=== PATIENT | female | born 1950 | race Two or more races ===

== ENCOUNTER → 2023-01-20 09:05 | Outpatient (BNVA) | payer MEDICARE, SELFPAY | PROVIDERS: PCP Internal Medicine; Visit Provider Internal Medicine Rheumatology | DX: M65.9 Synovitis and tenosynovitis, unspecified (principal); M17.0 Bilateral primary osteoarthritis of knee; M79.641 Pain in right hand; R76.8 Other specified abnormal immunological findings in serum | CPT/HCPCS: 20610; 99212 ==

== ENCOUNTER 2025-08-08 09:07 | Outpatient (AMB) | payer MEDICARE, SELFPAY ==
--- NOTE | 2025-08-08 09:18 | A.OFFVIS_ITS ---
Intake Visit Reasons: ENP: Tremor Allergies acetaminophen (From NyQuil) Allergy (Intermediate, Verified 01/20/23 09:21) Hives dextromethorphan (From NyQuil) Allergy (Intermediate, Verified 01/20/23 09:21) Hives doxylamine (From NyQuil) Allergy (Intermediate, Verified 01/20/23 09:21) Hives latex Allergy (Intermediate, Verified 01/20/23 09:21) Swelling metformin Allergy (Intermediate, Verified 01/20/23 09:21) Palpitations pseudoephedrine (From NyQuil) Allergy (Intermediate, Verified 01/20/23 09:21) Hives plastibase Allergy (Intermediate, Uncoded 01/20/23 09:21) swelling Medication List - Last Reconciled 08/08/25 by Nita Cortez MD capsaicin 0.025% 1 appl topical BID carvedilol 12.5 mg PO BID cholecalciferol (vitamin D3) 25 mcg PO DAILY diclofenac sodium 1% (Arthritis Pain (diclofenac)) 2 grams topical QID dulaglutide (Trulicity) mg subcut epinephrine (EpiPen) 0.3 mg IM Q4H PRN exemestane 25 mg PO DAILY fluticasone propionate 110 mcg/actuation inhalation magnesium 400 mg PO BID trazodone 25 mg PO BEDTIME PRN zonisamide 50 mg PO BID HPI Comments Details: This is a 75-year-old right-handed woman who is here for evaluation of tremors in her hands that started approximately 20 years ago. She has a history of hypertension some chest pains with a recently negative cardiac catheterization, bronchial asthma, diabetes mellitus, and depression, right breast cancer treated with Laser and RT. For the last 3 or 4 years she has been treated for her tremor with zonisamide 50 mg b.i.d. which seems to have helped. She still has some tremor which affects her ability to cook but otherwise she is functioning well. Her father also had tremors. She has no other mobility problems. She has trouble falling asleep and has recently started trazodone 25 mg at bedtime [facility] Medical History (Updated 08/08/25 @ 09:35 by Nita Cortez MD) Anxiety SVT (supraventricular tachycardia) Tremor Paroxysmal supraventricular tachycardia Fibromyalgia CTS (carpal tunnel syndrome) Hypertension Osteoarthritis Severe obesity Thyroid nodule Diabetes Essential tremor Osteopenia Infiltrating ductal carcinoma LVH (left ventricular hypertrophy) Neuropathy Palpitations Pericardial effusion Lung nodule Surgical History Hx of colonoscopy H/O sigmoidoscopy Cataract Hx of cardiac cath H/O lumpectomy Family History Father Cataract Glaucoma Social History (Updated 01/20/23 @ 09:24 by MARICRUZ Butterfield) Household Members: Spouse Alcohol intake: current Patient Tobacco Use Status: Never used Tobacco Current occupational status: unemployed and retired Review of Systems Const Details: Sleep:? Difficulty getting to sleepadmits.? Difficulty maintaining sleepadmits.? Urge to move legsdenies.? Teeth grindingdenies.? Shouting or Kicking during sleep denies.? Abnormal behavior during sleepdenies.? Excessive sleepdenies.? Snoring denies.? Daytime sleepinessdenies. ???General/Constitutional:? Change in appetitedenies.? Chillsdenies.? Fatiguedenies.? Feverdenies.? Weight gainadmits.? Weight lossdenies. ???Ophthalmologic:? Blurred visiondenies.? Diminished visual acuitydenies. ???ENT:? Stuffinessdenies.? Decreased hearingdenies.? Dry mouthdenies.? Ear paindenies.? Nosebleeddenies.? Ringing in the earsdenies.? Sinus paindenies.? Sore throat denies.? Swollen glandsdenies. ???Endocrine:? Cold intolerancedenies.? Excessive thirstdenies.? Frequent urinationdenies.? Heat intolerancedenies. ???Respiratory:? Shortness of breathdenies.? Chest paindenies.? Coughdenies. ???Breast:? Breast lumpdenies.? Nipple dischargedenies. ???Cardiovascular:? Chest pain at restdenies.? Chest pain with exertiondenies.? Claudicationdenies .? Dizzinessdenies.? Fluid accumulation in the legsdenies.? Irregular heartbeat denies.? Palpitationsdenies. ???Gastrointestinal:? Abdominal paindenies.? Constipationdenies.? Diarrheadenies.? Difficulty swallowingdenies.? Heartburndenies.? Nauseadenies.? Rectal bleedingdenies. ???Hematology:? Easy bruisingdenies.? Prolonged bleedingdenies. ???Genitourinary:? Frequent urinationdenies.? Urgencydenies.? Incontinencedenies.? Erectile Dysfunctiondenies. ???Musculoskeletal:? Neck paindenies.? Back paindenies.? Muscle achesdenies.? Painful jointsdenies.? Sciaticadenies.? Weaknessdenies. ???Podiatric:? Difficulty walkingdenies.? Foot numbnessdenies. ???Neurologic:? Difficulty swallowingdenies.? Balance difficultydenies.? Coordinationnormal.? Difficulty speakingdenies.? Dizzinessdenies.? Faintingdenies.? Gait abnormality denies.? Headacheadmits.? Loss of strengthdenies.? Loss of use of extremity denies.? Low back paindenies.? Memory lossdenies.? Seizuresdenies.? Ticsdenies.? Tingling/Numbnessdenies.? Transient loss of visiondenies.? Tremordenies. ???Psychiatric:? Anxietyadmits.? Auditory/visual hallucinationsdenies.? Delusionsdenies.? Depressed mood Yes.? Stressorsadmits.? Substance abusedenies.? Suicidal thoughts denies. Physical Exam Neuro Other: General Examination: GENERAL APPEARANCE:??normal,?in no acute distress?,?normal,?in no acute distress.?HEAD:??normocephalic,?atraumatic?,?normocephalic,?atraumatic.?EYES:??s clera non-icteric,?conjunctiva clear?,?sclera non-icteric,?conjunctiva clear.?EARS:??auditory canal clear,?tympanic membrane intact, clear?,?auditory canal clear,?tympanic membrane intact, clear.?NOSE:??no lesions?,?no lesions.?ORAL CAVITY:??gums normal,?mucosa moist,?no lesions?,?gums normal,?mucosa moist,?no lesions.?THROAT:??clear?,?clear.?NECK/THYROID:??no cervical lymphadenopathy,?thyroid normal,?neck supple, full range of motion,?no carotid bruit?,?no cervical lymphadenopathy,?thyroid normal,?neck supple, full range of motion,?no carotid bruit.?SKIN:??no rashes,?no significant birthmarks?,?no rashes,?no significant birthmarks.?HEART:??S1, S2 normal,?no murmurs?,?S1, S2 normal,?no murmurs.?LUNGS:??clear anteriorly and posteriorly?,?clear anteriorly and posteriorly.?CHEST:??no gross rib deformity,?clear to auscultation?,?no gross rib deformity,?clear to auscultation.?BACK:??normal exam of spine?,?normal exam of spine.?EXTREMITIES:??no edema?,?no edema.?PERIPHERAL PULSES:??normal?,?normal.?PSYCH:??alert, oriented,?cognitive function intact,?cooperative with exam?,?alert, oriented,?cognitive function intact,?cooperative with exam.? Neurological: Abnormal neurological findings:??Coarse tremor at 8 hertz frequency intermittently of the outstretched hands both with the finger spread and in the pincer position. At times worse on the left than the right. No rigidity bradykinesia or cogwheeling. No head or truncal tremor.?Mental Status:??alert and oriented X 3,?Normal attention, orientation, memory and affect.?Cranial Nerves:??Pupils are equal, round and reactive to light. Fundoscopy shows normal disc bilaterally. External occular muscles are intact. Visual zamorano are full, no ptosis. Face is symmetrical, no facial weakness or droop. Facial sensations are normal. Tongue protrudes in midline. Palate elevates symmetrically. Shoulder shrugging is normal..?Motor Examination:??Normal muscle tone, bulk and strength,?No atrophy or fasciculations,?No drift of the extended upper extremities,?Deep tendon reflexes are 2+?,?Plantars are flexor?.?Motor Strength:?Proximal Muscles (out of 5):5Distal Muscles (out of 5):5Neck Flexors (out of 5):5Neck Extensors (out of 5):5Deltoid (out of 5):5Biceps (out of 5):5 Triceps (out of 5):5Serratus Anterior (out of 5):5Wrist Extensors (out of 5):5 APB (out of 5):5Finger Spread (out of 5):5Ileopsoas (out of 5):5Quadriceps (out of 5):5Hamstrings (out of 5):5Tibialis Anterior (out of 5):5Peronei (out of 5):5 EDB (out of 5):5Gastrocnemius (out of 5):5Straight Leg Raising:??90 degrees.?Sensory Exam:??Normal light touch, temperature, pinprick, vibration and joint-position sensations?,?Rhomberg sign is absent.?Coordination:??no ataxia,?no titubation,?[id number], [id number] test and rapid alternating movements were normal.?Gait Exam:??Within normal limits.?Cerebellar Signs:??[id number] and [id number]-vrpd is normal,?no dysdiadochokinesia?.?Extrapyramidal System:??tremor as above, no rigidity with normal facial expressions,?No bradykinesia, no bradyphrenia. Normal arm swing and posture. No propulsion or retropulsion.?Speech:??Normal,?no dysphasia or dysarthria..? Mini Mental Status Exam: Level of Consciousness:??Alert.?Orientation:??Knows correct year, month, date, day and season,?Knows correct city, county and state. Knows correct location and floor.?Registration:??Able to register 3 objects.?Attention:??Serial 7's performed accurately.?Recall:??Able to recall 3 out of 3 objects.?Language:??Normal spontaneous speech, fluency, repetition,naming, comprehension, reading and writing.?Total Score:??30/30.? Assessment & Plan Assessment & Plan (1) Benign familial tremor: Code(s): G25.0 - Essential tremor Category: Medical Plan continue Zinisamide. Add Primidone 25 mg qd for 2 weeks then 50 mg hs Medications: New primidone 50 mg PO BEDTIME 30 tabs 3RF 30 days MDD 50mg Refilled zonisamide 50 mg PO BID 180 caps 3RF 90 days Coding Level of Care Code New Pt Level 4 (66173) Diagnoses Benign familial tremor G25.0
--- OUTSIDE RECORDS SUMMARY | 2025-08-08 10:33 | XMS_ITS | Clinical Summary ---
Author Organization [facility] Address [address] [place] [address] Phone Care Team Providers Care Lead Mobile Developer Name Role Phone Joselo Mcdonnell MD Primary Care Provider [phone] Allergies Active Allergy Reactions Criticality Noted Date Comments Acetaminophen 05/31/2025 Lvhcdtjlf-Kwf-Sg-Acetamino phen 05/31/2025 Zgewghohgm-Zg-Yhvhjomffnqj n 01/09/2020 Latex 01/09/2020 Lemon Flavor 04/02/2022 Metformin Palpitations 04/17/2022 Other 10/03/2020 Tide laundry detergents and Zucchini (tried zucchini again once and ok) Plastibase Swelling High 09/27/2021 Plastic utensils , water bottles Swelling lips, throat tightness [place] 04/02/2022 Valacyclovir Itching 04/21/2024 Medications albuterol sulfate 90 mcg/actuation aerosol powdr breath activated Inhale into the lungs. Active capsaicin cream (CAPZASIN-HP) 0.1 % cream cream Apply topically 3 (three) times a day. Active exemestane (AROMASIN) 25 mg tablet TAKE 1 TABLET BY MOUTH DAILY 3 Active zonisamide (ZONEGRAN) 50 mg capsule Take 50 mg by mouth daily. Active LANCETS MISC by Does not apply route. Active glucose blood (Ciro Blood Glucose Test Strip) test strip 1 each by Other route as needed for other. Use as instructed Active clotrimazole-bet amethasone (LOTRISONE) 1-0.05 % cream Apply topically. Active cholecalciferol (VITAMIN D-3) 1,250 mcg (50,000 unit) capsule Take by mouth 1 (one) time each day. Active zinc sulfate (ZINCATE) 220 mg (50 mg elemental zinc) capsule Take 1 capsule (220 mg total) by mouth. Active EPINEPHrine (EPIPEN) 0.3 mg/0.3 mL injection Inject 0.3 mL (0.3 mg total) into the thigh if needed. 1 Active diclofenac (VOLTAREN) 1 % topical gel Apply 1 applicator topically 2 (two) times a day. 4 Active escitalopram (LEXAPRO) 10 mg tabletIndication s:Depression, unspecified depression type TAKE 1 TABLET(10 MG) BY MOUTH 1 TIME EACH DAY 30 tablet 5 5 Active tirzepatide (MOUNJARO) 2.5 mg/0.5 mL injectionIndicat ions:Type 2 diabetes mellitus with other specified complication, with long-term current use of insulin ([facility] V24, [facility] V28),Morbid obesity ([facility] V24, [facility] V28) Inject 0.5 mL (2.5 mg total) under the skin every 7 (seven) days. 2 mL 3 5 Active gabapentin (NEURONTIN) 600 mg tablet TAKE 1 TABLET(600 MG) BY MOUTH TWICE DAILY 180 tablet 1 5 Active carvediloL (COREG) 12.5 mg tablet Take 1 tablet (12.5 mg total) by mouth 2 (two) times a day with meals. 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 Adjuvant radiation, intolerant of anastrozole, now on aromasin through oncology for at minimum 5 years Osteopenia 12/08/2019 Overview (02/17/2025): 0.7 T score spine -1.1 hip 3.2 % 10 year major osteoporotic and 0.3% hip fracture risk Essential tremor 09/30/2019 Overview (02/17/2025): Neurologist ([facility]) - on zonegran Type 2 diabetes mellitus wit h cataract ([facility] V24, [facility] V28) 11/26/2016 Thyroid nodule 07/10/2014 Overview (02/17/2025): FNA Benign; 08/29 Severe obesity (BMI >= 40) ([facility] V24, [facility] V28) 11/10/2013 Osteoarthritis of foot joint 02/25/2010 Overview (02/17/2025): Hallux valgus, hammertoes, R>L 1st MTP DJD Osteoarthritis of knee 02/25/2010 Overview (02/17/2025): Moderate, bilateral Hypertension 09/15/2008 Diabetes mellitus type 2 wit h neurological manifestations ([facility] V24, [facility] V28) 08/18/2008 Overview (02/17/2025): 02/2008 . Carpal tunnel syndrome 04/02/2006 Overview (02/17/2025): Pos NCT at [facility] in 2003: bilateral, severe CTS Had right CTR 2005 Fibromyalgia 04/02/2006 Overview (02/17/2025): RF negative; CCP Ab slightly positive (02/23) IMO update Paroxysmal supraventricular tachycardia ([facility]/HCC V24) 04/02/2006 Overview (02/17/2025): Holter monitor (11/05/17) : Normal sinus rhythm, 1 PACs, no PVCs Last Assessment & Plan: Presumed to paroxysmal SVT. ILR has not identified any significant arrhythmias. I reassured her that we will be aware if she has any clinically significant arrhythmias. In the interim I will continue with her current medical therapy including beta-winston. Blood pressure elevated today although last 3 measurements have been well-controlled. Will plan for routine clinical follow-up in around 1 year. Encounters Date Type Department Care Team Description 07/24/2025 Telephone [facility] Hematology Oncology [address] [place] [address] Stefany Gordon DC 06/20/2025 7:20 PM EDT Ancillary Procedure [facility] Cardiology [facility] [address] [place] [address] 06/13/2025 Telephone [facility] [address] [place] [address] Latasha Pond DC 05/31/2025 1:40 PM EDT Office Visit [facility] Cardiology [facility] [address] [place] [address] Rosi López NP SVT (supraventricular tachycardia) ([facility] V24) (Primary Dx) 05/15/2025 7:40 AM EDT Ancillary Procedure [facility] [address] [place] [address] 05/12/2025 11:15 AM EDT Office Visit Internal [facility] - [address] [place] [address] Regulo Oconnell, LELIA Type 2 diabetes mellitus with other specified complication, with long-term current use of insulin ([facility] V24, [facility] V28) (Primary Dx); Morbid obesity ([facility] V24, [facility] V28); Primary insomnia; Tremor from Last 3 Months Surgical History Surgery Date Site/Laterality Comments MAMMOGRAM KYLEE 12/24 PROCEDURE: MAMMOGRAM, SCREENING, BOTH BREASTS; COMMENT: neg OTHER SURGICAL HISTORY 12/24 PROCEDURE: PAP SMEAR, THIN PREP CYTOLOGY EXAM ONLY; COMMENT: [place]; neg CARDIAC CATHETERIZATION 05/17 PROCEDURE: HISTORICAL CARDIAC CATH; COMMENT: neg for CAD COLONOSCOPY 01/02/09 PROCEDURE: HISTORICAL COLONOSCOPY; COMMENT: normal; repeat in ten years FLEXIBLE SIGMOIDOSCOPY 06/17 PROCEDURE: NJ SIGMOIDOSCOPY FLX DX W/COLLJ SPEC BR/WA IF PFRMD; COMMENT: [place]; neg CATARACT EXTRACTION PROCEDURE: HISTORICAL CATARACT REMOVAL BREAST BIOPSY PROCEDURE: BX BREAST; PERC NEEDLE CORE W/IMAG GUID BREAST SURGERY PROCEDURE: NJ UNLISTED PROCEDURE BREAST; COMMENT: lumpectomy c radiation treatment BREAST LUMPECTOMY ABLATION DONE ON 05/01/2025 AT [facility] INDICATIONS:SVT Medical History Medical History Date Comments Paroxysmal supraventricular tachycardia ([facility] V24) 04/02/2006 DX:Paroxysmal supraventricul ar tachycardia (HCC) Carpal tunnel syndrome 04/02/2006 DX:Carpal tunnel syndrome; COMMENT: right CTR helped; left still symptomatic Myalgia and myositis, unspecified 04/02/2006 DX:Myalgia and myositis, unspecified Historical Medical DX 02/29/2008 DX:Glucose intolerance Obesity 02/29/2008 DX:Obesity Elevated blood pressure read ing without diagnosis of hypertension 08/18/2008 DX:Elevated blood pr essure reading without diagnosis of hypertension Type II or unspecified type diabetes mellitus without mention of complication, not stated as uncontrolled 08/18/2008 DX:Type II or unspecified ty pe diabetes mellitus without mention of complication, not stated as uncontrolled Unspecified essential hypertension 09/15/2008 DX:Unspecified essential hypertension Osteoarthritis of knee 02/25/2010 DX:Osteoa rthritis of knee Osteoarthritis of foot joint 02/25/2010 DX: Osteoarthritis of foot joint Thyroid nodule 07/10/2014 DX:Thyroid nodul e Thyroid nodule 07/10/2014 DX:Thyroid nodul e Diabetes mellitus type 2 wit h neurological manifestations ([facility] V24, [facility] V28) 08/18/2008 DX:Diabetes mellitus type 2 with neurological manifestations (HCC); COMMENT: 02/2008 Type 2 diabetes mellitus wit h cataract ([facility] V24, [facility] V28) 11/26/2016 DX:Type 2 diabetes mellitus with cataract (HCC) Osteopenia 12/08/2019 DX:Osteopenia 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 12/23/2019 DX: 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 Positive anti-CCP test 02/14/2020 DX:Positi ve anti-CCP test; COMMENT: Titer of 32(low) - No synovitis Stage 1 infiltrating ductal carcinoma of right female breast ([facility] V24, [facility] V28) 12/20/2019 DX:Stage 1 infiltrating duct al carcinoma of right female breast (HCC) 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 Cataracts Father Diabetes Father bkn amputations bilaterally Glaucoma Father Testicular cancer Father Brain cancer Mother Breast cancer Other m aunts x 3 Rheum arthritis Son 1 Blindness Neg Hx Macular degeneration Neg Hx Strabismus Neg Hx Relation Name Status Comments Brother x4 3 Daughter x2 both Father Mother Other m aunts x 3 Alive Son 1 Alive Social History Tobacco Use Types Packs/Day Years Used Date Smoking Tobacco: Never Smokeless Tobacco: Never Tobacco Cessation:Counseling Given: Not Answered Alcohol Use Standard Drinks/Week Comments Yes 0 (1 standard drink = 0.6 oz pur e alcohol) Housing Instability Answer Date Recorde d Are you worried that in the next 2 months you may not have stable housing? No 11/09/2024 Food Access & Nutrition Answer Date Rec orded Do you have access to a vari ety of food including fruits and vegetables? Yes 11/09/2024 Access to Healthcare Answer Date Record ed Within the last 3 months, ivelisse huerta many times did you visit the emergency department for your medical care? 1 11/09/2024 Health Literacy Answer Date Recorded How often do you need to hav e someone help you when you read instructions, pamphlets, or other written material from your doctor or pharmacy? Never 11/09/2024 Caregiver: How often do you need to have someone help you when you read instructions, pamphlets, or other written material from your doctor or pharmacy? Not on file 11/09/2024 Financial Risk Answer Date Recorded How hard is it for you to pa y for the very basics like food, housing, medical care, and air conditioning / heating? Somewhat hard 11/09/2024 Transportation Answer Date Recorded Has the lack of transportati on kept you from meetings, work, or from getting things needed for daily living? No Has the lack of transportati on kept you from medical appointments or from getting medications? No 11/09/2024 Social Isolation Answer Date Recorded How often do you feel lonely or isolated from th ose around you? Rarely 11/09/2024 Food Risk Answer Date Recorded Within the past 12 months we worried whether our food would run out before we got money to buy more. Never true 11/09/2024 Within the past 12 months th e food we bought just didn't last and we didn't have money to get more. Never true 11/09/2024 Dependent Care Answer Date Recorded Do you need help finding or paying for care for your loved ones. For example, child psychiatrist or elderly care for an older adult? No 11/09/2024 Education Answer Date Recorded Do you think completing more education or training, like finishing a GED, going to college, or learning a trade, would be helpful for you? N/A 11/09/2024 Employment and Income Answer Date Recor ded During the last four weeks, have you been actively looking for work? No 11/09/2024 Living Situation Answer Date Recorded What is your living situation? 1 01/10/2024 Comments No Sex and Gender Information Value Date Recorded Sex Assigned at Not on file Legal Sex Female 8:31 PM EST Gender Identity Not on file Sexual Orientation Not on file Obstetrics History Para Term AB IAB SAB Ectopic Multiple Livin g Live Births 3 3 3 Date Outcome GA Total Labor Labor/2nd/3rd Weight Sex Type Anes PTL Cate A1 A5 Name Clin Term Term Term Last Filed Vital Signs Vital Sign Reading Time Taken Comments Blood Pressure 110/70 05/31/2025 1:46 PM EDT Pulse 64 05/31/2025 1:46 PM EDT Temperature 36.4 C (97.5 F) 11/29/2024 11:22 AM EST Respiratory Rate 16 04/13/2025 3:01 PM EDT Oxygen Saturation 96% 05/31/2025 1:46 PM EDT Inhaled Oxygen Concentration - - Weight 121 kg (266 lb) 05/31/2025 1:46 PM EDT Height 154.9 cm (5' 1 ) 05/31/2025 1:46 PM EDT Body Mass Index 50.26 05/31/2025 1:46 PM EDT Plan of Treatment Upcoming Encounters Date Type Department Care Team (Late st Contact Info) Description 09/01/2025 1:00 PM EDT Appointment [facility] Bone Density [address] [place] [address] 09/14/2025 11:00 AM EDT Office Visit Internal Medicine - [address] [phone] Regulo Oconnell NP [address] [place] [phone] 10/18/2025 11:00 AM EST Office Visit [facility] Hematology Oncology [address] [place] [address] Chan Mayo MD [address] [place] [address] 02/16/2026 2:10 PM EDT Appointment Radiology Department - [address] [phone] Health Maintenance Due Date Last Done Comments Diabetes: Annual Foot Exam 1961 Diabetes: Annual Retina Eye Exam 1961 RSV Immunization Adult Patients (1 - Risk 60-74 years 1-dose series) 2011 Cholesterol Screening (Lipid Panel) 10/23/2022 Colorectal Cancer Screening: Colonoscopy 10/23/2022 Diabetes: Annual Urine Albumin-Creatinine Ratio (uACR) 10/23/2022 Hepatitis C Screening 10/23/2022 Medicare Annual Wellness Visit 10/23/2022 Diabetes: Blood Sugar Control Test (HGBA1C) 07/12/2025 01/12/2025, 09/09/2024 COVID-19 Vaccine ( season) 2025 10/02/2022, 11/24/2021, 10/25/2021 Influenza Vaccine (#1) 2025 Social Influencers of Health Screening 11/09/2025 11/09/2024 Diabetes: Annual GFR (Glomerular Filtration Rate) 2026 2025, 01/12/2025, 11/10/2024, Additional history exists Hypertension/CHF/CAD Annual BMP Blood Test 2026 2025, 01/12/2025, 11/10/2024, Additional history exists Falls Risk Assessment 05/12/2026 05/12/2025, 024 Breast Cancer Screening 02/15/2027 02/16/20, 02/04/2024, 01/29/2023, Additional history exists DTaP,Tdap,and Td Vaccines (4 - Td or Tdap) 04/02/2032 04/02/2022, 12/19/2011, 12/03/2001 Osteoporosis Screening (Bone Density Screening) 08/28/2033 08/28/2023, 08/09/2021, 12/08/2019 Pneumococcal Vaccine: 50+ Years Completed 04/02/2022, 03/22/2019, 09/28/2015 Zoster Vaccines Completed 05/21/2023, 08/05/2022 Depression Screening Completed 05/05/2025 HIB Vaccines Aged Out No longer eligi ble based on patient's age to complete this topic HPV Vaccines Aged Out No longer eligi ble based on patient's age to complete this topic Hepatitis A Vaccines Aged Out No long er eligible based on patient's age to complete this topic Hepatitis B Vaccines Aged Out No long er eligible based on patient's age to complete this topic IPV Vaccines Aged Out No longer eligi ble based on patient's age to complete this topic MMR Vaccines Aged Out No longer eligi ble based on patient's age to complete this topic Meningococcal ACWY Vaccine Aged Out N o longer eligible based on patient's age to complete this topic Meningococcal B Vaccine Aged Out No l onger eligible based on patient's age to complete this topic RSV Immunization Patients Under 20 months Aged Out No longer eligible based on patient's age to complete this topic Varicella Vaccines Aged Out No longer eligible based on patient's age to complete this topic Medical Devices Implanted Type Area Him Director Device Identifier Shelf Expiration Date Model / Serial / Lot Bsci-Crm [id number] Implanted:02/15 (Quantity not on file) Cardiac Loop Recorder [employer] CARD RHYTHM MGMT [id number] / [id number] / Procedures Procedure Name Priority Date/Time Associated Diagnosis Comments CARDIAC DEVICE CHECK- REMOTE- MURJ Routine 06/20/2025 7:15 PM EDT ECG 12-LEAD Routine 05/31/2025 2:16 PM EDT SVT (supraventricular tachycardia) ([facility] V24) CARDIAC DEVICE CHECK- REMOTE- MURJ Routine 05/15/2025 7:38 AM EDT BASIC METABOLIC PANEL Routine 2025 3:47 PM EDT SVT (supraventricular tachycardia) ([facility]CC V24) MG MAMMO DIGITAL SCREENING W USAMA BILAT Routine 02/15/2025 2:23 PM EDT Encounter for screening mammogram for breast cancer HEMOGLOBIN A1C Routine 01/12/2025 12:56 PM EST Type 2 diabetes mellitus with other specified complication, 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 Date Time Interrogation Session [id number] CV DEVICE CHECK Type Interrogation Session Remote Scheduled CV DEVICE CHECK Implantable Pulse Generator Him Director BSX CV DEVICE CHECK Implantable Pulse Generator Type ILR CV DEVICE CHECK Implantable Pulse Generator Model M312 CV DEVICE CHECK Implantable Pulse Generator Serial Number [id number] CV DEVICE CHECK Implantable Pulse Generator Implant Date 20240311 CV DEVICE CHECK Battery Status Beginning of Service CV DEVICE CHECK Atrial Tachy Statistic AT/AF [place] Percent 0.00 CV DEVICE CHECK Date of Service 2025-06-20 CV DEVICE CHECK Anatomical Region Laterality Modality Device Interroga tion 06/05/2025 2:34 AM EDT Impressions 06/20/2025 3:47 PM EDT Normal Remote: No Events * This is a normal remote diagnostic device check * Alerts or events: None * Battery data was reviewed * Battery status: OCTAVIO, * Presenting rhythm reviewed * Heart Rate Histograms reviewed Narrative Procedure Note Beto Ghotra MD - 06/20/2025 IMPRESSION: Normal Remote: No Events * This is a normal remote diagnostic device check * Alerts or events: None * Battery data was reviewed * Battery status: OCTAVIO, * Presenting rhythm reviewed * Heart Rate Histograms reviewed Beto Ghotra MD CV IMPLANTABLE CARDIAC DEVICE PROCEDURES Final Result * ECG 12 lead (05/31/2025 2:16 PM EDT) Ventricular Rate ECG 64 BPM GEMUSE Atrial Rate 64 BPM GEMUSE P-R Interval 206 ms GEMUSE QRS Duration 100 ms GEMUSE Q-T Interval 424 ms GEMUSE QTc 437 ms GEMUSE P Wave Amity 45 degrees GEMUSE R Amity 64 degrees GEMUSE T Amity 60 degrees GEMUSE ECG Interpretation Normal sinus rhythm When compared with ECG of 30-MAR-2025 08:51, No significant change was found Confirmed by LIZETH ZIEGLER ([id number]) on 07/05/2025 5:24:33 PM GEMUSE 05/31/2025 1:53 PM EDT 07/05/2025 5:24 PM EDT us [place] Zhangjrelizabeth SUPERINTENDENT [employer]ODUCTION ECG ORDERABLES Edited Resul t - Final GEMUSE * Basic metabolic panel (2025 3:47 PM EDT) Sodium 141 133 - 145 mmol/L LAB CHEMISTRY METHOD 2025 7:54 PM EDT [facility] Potassium 4.5 3.5 - 5.5 mmol/L LAB CHEMISTRY METHOD 2025 7:54 PM [facility] Chloride 108 96 - 110 mmol/L LAB CHEMISTRY METHOD 2025 7:54 PM [facility] CO2 25 21 - 32 mmol/L LAB CHEMISTRY METHOD 2025 7:54 PM [facility] Anion Gap 8 3 - 11 LAB CHEMISTRY METHOD 2025 7:54 PM [facility] Glucose 99 70 - 100 mg/dL LAB CHEMISTRY METHOD 2025 7:54 PM [facility] BUN 12 5 - 25 mg/dL LAB CHEMISTRY METHOD 2025 7:54 PM [facility] Creatinine 0.79 0.50 - 1.10 mg/dL LAB CHEMISTRY METHOD 2025 7:54 PM [facility] eGFR 79 >=60 mL/min/1. 73m2 LAB CHEMISTRY METHOD 2025 7:54 PM [facility] Comment:Calculation based on the Chronic Kidney Disease Epidemiology Collaboration (CKD-EPI) equation refit without adjustment for race. BUN/Creatinine Ratio 15.2 LAB CHEMISTRY METHOD 2025 7:54 PM [facility] Calcium 9.3 8.5 - 10.5 mg/dL LAB CHEMISTRY METHOD 2025 7:54 PM [facility] Blood Venous blood specimen / Unknown Venipuncture / Unknown 2025 3:47 PM EDT 2025 3:47 PM EDT us Beto Ghotra MD LAB BLOOD ORDERABLES Final Res ult [facility] [address] [place] [address], [place] [phone] * MG Mammo Digital Screening w Usama bilat (02/15/2025 2:23 PM EDT) Anatomical Region Laterality Modality Breast Bilateral Mammography 02/16/2025 9:07 AM EDT Impressions 02/16/2025 9:12 AM EDT BILATERAL BREASTS: Benign, no evidence of malignancy. Normal interval follow-up is recommended in 12 months. BREAST DENSITY: B - There are scattered areas of fibroglandular density. BI-RADS CATEGORY: 2 - BENIGN RECOMMENDATION: Screening bilateral mammogram is recommended in 1 year. Mammo Location: [facility], [address] [place] [address], [id number], . -------- FINAL REPORT -------- Dictated By: Sydnee Hopson Dictated Date: 02/16/2025 09:07 ET Assigned Physician: Sydnee Hopson Reviewed and Electronically Signed By: Sydnee Hopson Signed Date: 02/16/2025 09:12 ET Workstation ID: [id number] Transcribed By: Self Edit Transcribed Date: 02/16/2025 09:07 ET Narrative 02/16/2025 9:12 AM EDT STUDY: Bilateral screening mammography with tomosynthesis and CAD History: Personal history of right lumpectomy for breast cancer in 2019. TECHNIQUE: Bilateral full-field digital screening mammography is obtained and read in conjunction with computer-aided detection. Tomosynthesis as well as 2-D C view imaging were obtained. COMPARISON: Comparison made to multiple prior, most recent February 04, 2024, and most remote November 23, 2020. RIGHT BREAST: Postlumpectomy changes. No significant masses, suspicious calcifications or other abnormalities are seen. LEFT BREAST: Loop recorder limits local evaluation. No significant masses, suspicious calcifications or other abnormalities are seen. Procedure Note Sydnee Hopson MD - 02/16/2025 STUDY: Bilateral screening mammography with tomosynthesis and CAD History: Personal history of right lumpectomy for breast cancer in 2019. TECHNIQUE: Bilateral full-field digital screening mammography is obtainedand read in conjunction with computer-aided detection. Tomosynthesis aswell as 2-D C view imaging were obtained. COMPARISON: Comparison made to multiple prior, most recent February 04, 2024,and most remote November 23, 2020. RIGHT BREAST: Postlumpectomy changes. No significant masses, suspiciouscalcifications or other abnormalities are seen. LEFT BREAST: Loop recorder limits local evaluation. No significantmasses, suspicious calcifications or other abnormalities are seen. IMPRESSION: BILATERAL BREASTS: Benign, no evidence of malignancy. Normal intervalfollow-up is recommended in 12 months. BREAST DENSITY: B - There are scattered areas of fibroglandular density. BI-RADS CATEGORY: 2 - BENIGN RECOMMENDATION: Screening bilateral mammogram is recommended in 1 year. Mammo Location: [facility], [address] [place] [address], [id number], . -------- FINAL REPORT -------- Dictated By: Sydnee Hopson Dictated Date: 02/16/2025 09:07 ET Assigned Physician: Sydnee Hopson Reviewed and Electronically Signed By: Sydnee Hopson Signed Date: 02/16/2025 09:12 ET Workstation ID: [id number] Transcribed By: Self Edit Transcribed Date: 02/16/2025 09:07 ET us Joselo Mcdonnell MD IMG BI PROCEDURES Final R esult * (ABNORMAL) Hemoglobin A1c (01/12/2025 12:56 PM EST) Hemoglobin A1C 6.9(H) <6.5 % LAB CHEMISTRY METHOD 01/16/2025 1:50 PM EST [facility] Mean Bld Glu Estim. 151 mg/dL LAB CHEMISTRY METHOD 01/16/2025 1:50 PM EST [facility] Blood Venous blood specimen / Unknown Venipuncture / Unknown 01/12/2025 12:56 PM EST 01/12/2025 12:56 PM EST us Regulo Oconnell NP LAB BLOOD ORDERABLES Final Res ult [facility] [address] [place] [address], * [facility] DEXA AXIAL SKELETON (08/28/2023 7:54 AM EDT) Anatomical Region Laterality Modality Mammography 08/27/2023 10:5 7 AM EDT Narrative 08/28/2023 7:54 AM EDT [facility] Diagnostic Imaging Department [address] [place] [address] Patient: KEENA TOLEDO D.O.B./Age/Sex: 1950 - 73 - F Unit#: [id number] Location/Status: SPDIMAM/REG CLI Mnemonic/Ordering Site: MAMDEXAAX/SPMAM Ordering Physician: CHAN MAYO MD [facility] Dexa Axial Skeleton - 08/27/232 Report Status:Signed HISTORY: The patient is a 73-year-old postmenopausal female with clinical concern for metabolic bone disease. FINDINGS: Dual energy x-ray absorptiometry of the lumbar spine and femurs is performed. The mean bone mineral density at L1-2 is 1.048 gm/cm2 which is 90% of that of young normals and 95% of that of age matched controls. This yields a T- score of -1.0 and a Z-score of -0.4 and there is therefore no evidence of osteoporosis or osteopenia here. The mean bone mineral density of the femurs bilaterally is 1.002 gm/cm2 which is 99% of that of young normals and 110% of that of age matched controls. This yields a T-score of 0.0 and a Z-score of 0.7 and there is therefore no evidence of osteoporosis or osteopenia here. However, the T-score of the right femoral neck is -1.9 and that of the left femoral neck is -1.9 which is diagnostic of osteopenia. IMPRESSION: 1. Osteopenia. There has been a decrease of 9.2% in bone mineral density in the lumbar spine since the prior examination of 08/09/2021. There has been an increase of 4.4% in bone mineral density in the right femur and a decrease of 3.9% in bone mineral density in the left femur. 2. FRAX analysis yields a 10-year probability of major osteoporotic fracture of 9.6% and a 10-year probability of hip fracture of 1.7%. Code 63244 Dictating Physician: MARY REYNOLDS MD Electronically Signed by: MARY REYNOLDS MD Dic Date/Time: 08/28/23751 Sign date/Time: 08/28/23753 Procedure Note Mary Reynolds MD - 12/22/2023 [facility] Diagnostic Imaging Department [address] [place] [id number] Patient: KEENA TOLEDO /Age/Sex: 1950 - 73 - F Unit#: [id number] Location/Status: SPDIMAM/REG CLI Mnemonic[facility] Ordering Physician: CHAN MAYO MD [facility] Dexa Axial Skeleton - 08/27/23 - 1134 Report Status:Signed HISTORY: The patient is a 73-year-old postmenopausal female withclinical concern for metabolic bone disease. FINDINGS: Dual energy x-ray absorptiometry of the lumbar spine and femursis performed. The mean bone mineral density at L1-2 is 1.048 gm/cm2 which is90% of that of young normals and 95% of that of age matched controls. This yieldsa T- score of -1.0 and a Z-score of -0.4 and there is therefore no evidenceof osteoporosis or osteopenia here. The mean bone mineral density of the femurs bilaterally is 1.002 gm/bd7ylouy is 99% of that of young normals and 110% of that of age matched controls.This yields a T-score of 0.0 and a Z-score of 0.7 and there is therefore noevidence of osteoporosis or osteopenia here. However, the T-score of the rightfemoral neck is -1.9 and that of the left femoral neck is -1.9 which is diagnosticof osteopenia. IMPRESSION: 1. Osteopenia. There has been a decrease of 9.2% in bone mineral densityin the lumbar spine since the prior examination of 08/09/2021. There has beenan increase of 4.4% in bone mineral density in the right femur and a decreaseof 3.9% in bone mineral density in the left femur. 2. FRAX analysis yields a 10-year probability of major osteoporoticfracture of 9.6% and a 10-year probability of hip fracture of 1.7%. 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 Health Care Decision (hx) 03/11/2024 HE ALTH CARE PROXY Health Care Decision (hx) 12/30/2019 AD ALVAREZ DIRECTIVE Health Care Decision (hx) 12/30/2019 AD ALVAREZ DIRECTIVE Health Care Decision (hx) 12/30/2019 AD ALVAREZ DIRECTIVE Health Care Decision (hx) 12/30/2019 AD ALVAREZ DIRECTIVE Health Care Decision (hx) 12/30/2019 AD ALVAREZ DIRECTIVE Health Care Decision (hx) 12/30/2019 AD ALVAREZ DIRECTIVE Health Care Decision (hx) 12/30/2019 AD ALVAREZ DIRECTIVE Health Care Decision (hx) 12/30/2019 AD ALVAREZ DIRECTIVE Health Care Decision (hx) 12/30/2019 AD ALVAREZ DIRECTIVE Health Care Decision (hx) 12/30/2019 AD ALVAREZ DIRECTIVE Health Care Decision (hx) 12/30/2019 AD ALVAREZ DIRECTIVE Health Care Decision (hx) 12/30/2019 AD ALVAREZ DIRECTIVE Health Care Decision (hx) 12/30/2019 AD ALVAREZ DIRECTIVE Health Care Decision (hx) 12/30/2019 AD ALVAREZ DIRECTIVE Health Care Decision (hx) 12/30/2019 AD ALVAREZ DIRECTIVE Health Care Decision (hx) 12/30/2019 AD ALVAREZ DIRECTIVE Health Care Decision (hx) 12/30/2019 AD ALVAREZ DIRECTIVE Health Care Decision (hx) 12/30/2019 AD ALVAREZ DIRECTIVE Health Care Decision (hx) 12/30/2019 AD ALVAREZ DIRECTIVE Health Care Decision (hx) 12/30/2019 AD ALVAREZ DIRECTIVE Health Care Decision (hx) 12/30/2019 AD ALVAREZ DIRECTIVE Health Care Decision (hx) 12/30/2019 AD ALVAREZ DIRECTIVE Health Care Decision (hx) 12/30/2019 AD ALVAREZ DIRECTIVE Health Care Decision (hx) 12/30/2019 AD ALVAREZ DIRECTIVE Health Care Decision (hx) 12/30/2019 AD ALVAREZ DIRECTIVE Health Care Decision (hx) 12/30/2019 AD ALVAREZ DIRECTIVE Health Care Decision (hx) 12/30/2019 AD ALVAREZ DIRECTIVE Health Care Decision (hx) 12/30/2019 AD ALVAREZ DIRECTIVE Health Care Decision (hx) 12/30/2019 AD ALVAREZ DIRECTIVE Health Care Decision (hx) 12/30/2019 AD ALVAREZ DIRECTIVE Health Care Decision (hx) 12/30/2019 AD ALVAREZ DIRECTIVE Health Care Decision (hx) 12/30/2019 AD ALVAREZ DIRECTIVE Health Care Decision (hx) 12/30/2019 AD ALVAREZ DIRECTIVE Health Care Decision (hx) 12/30/2019 AD ALVAREZ DIRECTIVE Health Care Decision (hx) 12/30/2019 AD ALVAREZ DIRECTIVE Health Care Decision (hx) 12/30/2019 AD ALVAREZ DIRECTIVE Health Care Decision (hx) 12/30/2019 AD ALVAREZ DIRECTIVE Health Care Decision (hx) 12/30/2019 AD ALVAREZ DIRECTIVE Health Care Decision (hx) 12/30/2019 AD ALVAREZ DIRECTIVE Health Care Decision (hx) 12/30/2019 AD ALVAREZ DIRECTIVE Health Care Decision (hx) 12/30/2019 AD ALVAREZ DIRECTIVE Health Care Decision (hx) 12/30/2019 AD ALVAREZ DIRECTIVE Health Care Decision (hx) 12/30/2019 AD ALVAREZ DIRECTIVE Health Care Decision (hx) 12/30/2019 AD ALVAREZ DIRECTIVE Health Care Decision (hx) 12/30/2019 AD ALVAREZ DIRECTIVE Health Care Decision (hx) 12/30/2019 AD ALVAREZ DIRECTIVE Health Care Decision (hx) 12/30/2019 AD ALVAREZ DIRECTIVE Health Care Decision (hx) 12/30/2019 AD ALVAREZ DIRECTIVE Health Care Decision (hx) 12/30/2019 AD ALVAREZ DIRECTIVE Health Care Decision (hx) 12/30/2019 AD ALVAREZ DIRECTIVE Health Care Decision (hx) 12/30/2019 AD ALVAREZ DIRECTIVE Health Care Decision (hx) 12/30/2019 AD ALVAREZ DIRECTIVE Health Care Decision (hx) 12/30/2019 AD ALVAREZ DIRECTIVE Health Care Decision (hx) 12/30/2019 AD ALVAREZ DIRECTIVE Health Care Decision (hx) 12/30/2019 AD ALVAREZ DIRECTIVE Health Care Decision (hx) 12/30/2019 AD ALVAREZ DIRECTIVE Health Care Decision (hx) 12/30/2019 AD ALVAREZ DIRECTIVE Health Care Decision (hx) 12/30/2019 AD ALVAREZ DIRECTIVE Health Care Decision (hx) 12/30/2019 AD ALVAREZ DIRECTIVE Health Care Decision (hx) 12/30/2019 AD ALVAREZ DIRECTIVE Health Care Decision (hx) 12/30/2019 AD ALVAREZ DIRECTIVE Health Care Decision (hx) 12/30/2019 AD ALVAREZ DIRECTIVE Health Care Decision (hx) 12/30/2019 AD ALVAREZ DIRECTIVE Health Care Decision (hx) 12/30/2019 AD ALVAREZ DIRECTIVE Health Care Decision (hx) 12/30/2019 AD ALVAREZ DIRECTIVE Health Care Decision (hx) 12/30/2019 AD ALVAREZ DIRECTIVE Health Care Decision (hx) 12/30/2019 AD ALVAREZ DIRECTIVE Health Care Decision (hx) 12/30/2019 AD ALVAREZ DIRECTIVE Health Care Decision (hx) 12/30/2019 AD ALVAREZ DIRECTIVE Health Care Decision (hx) 12/30/2019 AD ALVAREZ DIRECTIVE Health Care Decision (hx) 12/30/2019 AD ALVAREZ DIRECTIVE Health Care Decision (hx) 12/30/2019 AD ALVAREZ DIRECTIVE Health Care Decision (hx) 12/30/2019 AD ALVAREZ DIRECTIVE Health Care Decision (hx) 12/30/2019 AD ALVAREZ DIRECTIVE Health Care Decision (hx) 12/30/2019 AD ALVAREZ DIRECTIVE Health Care Decision (hx) 12/30/2019 AD ALVAREZ DIRECTIVE Health Care Decision (hx) 12/30/2019 AD ALVAREZ DIRECTIVE Health Care Decision (hx) 12/30/2019 AD ALVAREZ DIRECTIVE Health Care Decision (hx) 12/30/2019 AD ALVAREZ DIRECTIVE Health Care Decision (hx) 12/30/2019 AD ALVAREZ DIRECTIVE Health Care Decision (hx) 12/30/2019 AD ALVAREZ DIRECTIVE Health Care Decision (hx) 12/30/2019 AD ALVAREZ DIRECTIVE Health Care Decision (hx) 12/30/2019 AD ALVAREZ DIRECTIVE Health Care Decision (hx) 12/30/2019 AD ALVAREZ DIRECTIVE Health Care Decision (hx) 10/30/2015 AD ALVAREZ DIRECTIVE Health Care Decision (hx) 10/30/2015 AD ALVAREZ DIRECTIVE Health Care Decision (hx) 10/30/2015 AD ALVAREZ DIRECTIVE Health Care Decision (hx) 10/30/2015 AD ALVAREZ DIRECTIVE Health Care Decision (hx) 10/30/2015 AD ALVAREZ DIRECTIVE Health Care Decision (hx) 10/30/2015 AD ALVAREZ DIRECTIVE Health Care Decision (hx) 10/30/2015 AD ALVAREZ DIRECTIVE Health Care Decision (hx) 10/30/2015 AD ALVAREZ DIRECTIVE Health Care Decision (hx) 10/30/2015 AD ALVAREZ DIRECTIVE Health Care Decision (hx) 10/30/2015 AD ALVAREZ DIRECTIVE Health Care Decision (hx) 10/30/2015 AD ALVAREZ DIRECTIVE Health Care Decision (hx) 10/30/2015 AD ALVAREZ DIRECTIVE Health Care Decision (hx) 10/30/2015 AD ALVAREZ DIRECTIVE Health Care Decision (hx) 10/30/2015 AD ALVAREZ DIRECTIVE Health Care Decision (hx) 10/30/2015 AD ALVAREZ DIRECTIVE Health Care Decision (hx) 10/30/2015 AD ALVAREZ DIRECTIVE Health Care Decision (hx) 10/30/2015 AD ALVAREZ DIRECTIVE Health Care Decision (hx) 10/30/2015 AD ALVAREZ DIRECTIVE Health Care Decision (hx) 10/30/2015 AD ALVAREZ DIRECTIVE Health Care Decision (hx) 10/30/2015 AD ALVAREZ DIRECTIVE Health Care Decision (hx) 10/30/2015 AD ALVAREZ DIRECTIVE Health Care Decision (hx) 10/30/2015 AD ALVAREZ DIRECTIVE Health Care Decision (hx) 10/30/2015 AD ALVAREZ DIRECTIVE Health Care Decision (hx) 10/30/2015 AD ALVAREZ DIRECTIVE Health Care Decision (hx) 10/30/2015 AD ALVAREZ DIRECTIVE Health Care Decision (hx) 10/30/2015 AD ALVAREZ DIRECTIVE Health Care Decision (hx) 10/30/2015 AD ALVAREZ DIRECTIVE Health Care Decision (hx) 10/30/2015 AD ALVAREZ DIRECTIVE Health Care Decision (hx) 10/26/2015 AD ALVAREZ DIRECTIVE Health Care Decision (hx) 10/26/2015 AD ALVAREZ DIRECTIVE Health Care Decision (hx) 10/26/2015 AD ALAVREZ DIRECTIVE Health Care Decision (hx) 10/26/2015 AD ALVAREZ DIRECTIVE Health Care Decision (hx) 10/26/2015 AD ALVAREZ DIRECTIVE Health Care Decision (hx) 10/26/2015 AD ALVAREZ DIRECTIVE Health Care Decision (hx) 10/26/2015 AD ALVAREZ DIRECTIVE Health Care Decision (hx) 10/26/2015 AD ALVAREZ DIRECTIVE Health Care Decision (hx) 10/26/2015 AD ALVAREZ DIRECTIVE Health Care Decision (hx) 10/26/2015 AD ALVAREZ DIRECTIVE Health Care Decision (hx) 10/26/2015 AD ALVAREZ DIRECTIVE Health Care Decision (hx) 10/26/2015 AD ALVAREZ DIRECTIVE Health Care Decision (hx) 10/26/2015 AD ALVAREZ DIRECTIVE Health Care Decision (hx) 10/26/2015 AD ALVAREZ DIRECTIVE Health Care Decision (hx) 10/26/2015 AD ALVAREZ DIRECTIVE Health Care Decision (hx) 10/26/2015 AD ALVAREZ DIRECTIVE Health Care Decision (hx) 10/26/2015 AD ALVAREZ DIRECTIVE Health Care Decision (hx) 10/26/2015 AD ALVAREZ DIRECTIVE Health Care Decision (hx) 10/26/2015 AD ALVAREZ DIRECTIVE Health Care Decision (hx) 10/26/2015 AD ALVAREZ DIRECTIVE Health Care Decision (hx) 10/26/2015 AD ALVAREZ DIRECTIVE Health Care Decision (hx) 10/26/2015 AD ALVAREZ DIRECTIVE Health Care Decision (hx) 10/26/2015 AD ALVAREZ DIRECTIVE Health Care Decision (hx) 10/26/2015 AD ALVAREZ DIRECTIVE Health Care Decision (hx) 10/26/2015 AD ALVAREZ DIRECTIVE Health Care Decision (hx) 10/26/2015 AD ALVAREZ DIRECTIVE Health Care Decision (hx) 10/26/2015 AD ALVAREZ DIRECTIVE Health Care Decision (hx) 10/26/2015 AD ALVAREZ DIRECTIVE Care Teams Lead Mobile Developer Relationship Specialty Start Date End Date Joselo Mcdonnell MD [address] [place] [id number] PCP - General Internal Medicine 10/26/17
--- OUTSIDE RECORDS SUMMARY | 2025-08-08 10:33 | XMS_ITS | Clinical Summary ---
Author Organization [facility] Address [address] [place] [address] Care Team Providers Care Camp Cook Name Role Phone Joselo Mcdonnell MD Primary Care Provider [phone] Allergies Active Allergy Reactions Criticality Noted Date Comments Latex 01/09/2020 Dx-Znphzqreeh-Spwtekxunroel 01/09/20 20 Valacyclovir Itching 04/21/2024 Medications Medication Sig Dispensed Refills Start Date End Date Status carvedilol (COREG) 12.5 MG tablet Take 1 tablet (12.5 mg total) by mouth 2 (two) times a day with meals. 0 Active Clotrimazole-Betamet hasone (LOTRISONE EX) Apply topically. 0 Active Albuterol Sulfate 108 (90 Base) MCG/ACT AEPB Inhale into the lungs. 0 Active zonisamide (ZONEGRAN) 50 MG capsule Take 1 capsule (50 mg total) by mouth daily. 0 Active hydrOXYzine (ATARAX) 10 MG tablet Take 1 tablet (10 mg total) by mouth 3 (three) times a day as needed for itching. 0 Active gabapentin (NEURONTIN) 300 MG capsule Take 1 capsule (300 mg total) by mouth 2 (two) times a day. 0 Active capsaicin (CAPZASIN HP) 0.1 % topical cream Apply topically 3 (three) times a day. 0 Active exemestane (AROMASIN) 25 MG tablet TAKE 1 TABLET BY MOUTH DAILY 30 tablet 9 07/24/2023 Active vitamin D3 (cholecalciferol) 10 MCG (400 UNIT) tablet Take 1 tablet (10 mcg total) by mouth daily. 0 Active zinc sulfate (ZINCATE) 220 (50 Zn) MG capsule Take 1 capsule (220 mg total) by mouth daily. 0 Active magnesium oxide 400 (240 Mg) MG TABS tablet Take 1 tablet (400 mg total) by mouth 2 (two) times a day. 0 Active vitamin C (ASCORBIC ACID) 250 MG tablet Take 1 tablet (250 mg total) by mouth every other day. 0 Active Active Problems No known active problems Social History Tobacco Use Types Packs/Day Years Used Date Smoking Tobacco: Never Smokeless Tobacco: Never Alcohol Use Standard Drinks/Week Comments No 0 (1 standard drink = 0.6 oz pur e alcohol) Sex and Gender Information Value Date Recorded Sex Assigned at Not on file Gender Identity Not on file Sexual Orientation Not on file Job Start Date Occupation Industry Not on file Not on file Not on file Last Filed Vital Signs Vital Sign Reading Time Taken Comments Blood Pressure 183/83 04/21/2024 11:23 AM EDT Pulse 62 04/21/2024 11:23 AM EDT Temperature 36.6 C (97.8 F) 04/21/2024 11:23 AM EDT Respiratory Rate - - Oxygen Saturation 98% 04/21/2024 11:23 AM EDT Inhaled Oxygen Concentration - - Weight 121.1 kg (267 lb) 04/21/2024 11:23 AM EDT Height 154.9 cm (5' 1 ) 02/14/2021 11:16 AM EDT Body Mass Index 50.45 02/14/2021 11:16 AM EDT Plan of Treatment Health Maintenance Due Date Last Done Comments Hepatitis C Screening 1950 COVID-19 Vaccine (#1) 1950 Depression Screening 1963 Preventative Health Evaluation 1969 Colon Cancer Screening (Colonoscopy) 1996 Breast Cancer Screening (Mammogram) 2001 Fall Risk Assessment 2016 Osteoporosis Screening (DEXA Scan) 2016 DTap / Tdap / Td (2 - Td or Tdap) 12/19/2021 12/19/2011 Influenza Vaccine (#1) 2025 RSV Adult > 60+ Yrs or (1 - 1-dose 75+ series) 2026 Pneumococcal Vaccine Completed 04/02/2022, 03/22/2019, 09/28/2015 Shingrix-Zoster Vaccine Completed 05/21/20, 08/05/2022 Hepatitis B Vaccines Aged Out No long er eligible based on patient's age to complete this topic RSV Ped < 20 months Aged Out No longe r eligible based on patient's age to complete this topic Care Teams Camp Cook Relationship Specialty Start Date End Date Joselo Mcdonnell MD [address] [place] [address] [place] [address] PCP - General Internal Medicine 12/20/19
--- OUTSIDE RECORDS SUMMARY | 2025-08-08 10:33 | XMS_ITS ---
Author Name [facility] Organization Unknown Care Team Organization Name Specialty Phone Email Start Date End Da gisela [facility] 07/05/2025 [facility] Joselo Mcdonnell Primary Care 09/23/2022 07/04/2024
== END 2025-08-08 11:35 | disposition home or self-care (01) ==
LOC: HO.HSM 09:08
PROVIDERS: PCP Internal Medicine; Referring Provider Internal Medicine; Visit Provider Psychiatry & Neurology Neurology
DX: G25.0 Essential tremor (principal)
CPT/HCPCS: 99204

== ENCOUNTER → 2025-08-08 09:07 | Outpatient (BNVA) | payer MEDICARE, SELFPAY | PROVIDERS: PCP Internal Medicine; Referring Provider Internal Medicine; Visit Provider Psychiatry & Neurology Neurology | DX: G25.0 Essential tremor (principal); Z79.899 Other long term (current) drug therapy | CPT/HCPCS: 99202 ==